=== PATIENT | male | born 1970 | race Caucasian/White ===

== ENCOUNTER → 2022-01-29 10:54 | Outpatient (CLI) | payer OTHER, SELFPAY ==
--- NOTE | 2022-01-29 | DI.RAD.S_ITS ---
PROCEDURE: FL BARIUM SWALLOW INDICATIONS: GASTROESOPHAGEAL REFLUX DISEASE/DYSPHAGIA COMPARISON: [facility] [place], [place], XR FOOT 3+ VIEWS LEFT, 03/29/2021, 12:49. FINDINGS: Function: There is moderate esophageal dysmotility. No elicited gastroesophageal reflux. There is obstruction of a calibrated barium tablet at the gastroesophageal junction. Morphology: There is a short segment focal narrowing of the distal esophagus at the gastroesophageal junction. Air-contrast images demonstrate normal mucosal morphology. Single contrast views show no esophageal extrinsic mass effects or diverticula. Limited images of the stomach demonstrate normal appearance. IMPRESSION: 1. A short-segment focal narrowing of the distal esophagus at the gastroesophageal junction causing obstruction of calibrated barium tablet. Differential diagnoses are distal esophageal stricture versus distal esophageal mass. Recommend EGD for further evaluation. 2. Moderate gastroesophageal dysmotility. Dictated by: Jay Lowe M.D. on 01/29/2022 at 11:53 Approved by: Jay Lowe M.D. on 01/29/2022 at 11:56
== END ==
PROVIDERS: PCP Family Medicine; Referring Provider Otolaryngology Facial Plastic Surgery; Visit Provider Otolaryngology Facial Plastic Surgery
DX: K22.4 Dyskinesia of esophagus (principal); K21.9 Gastro-esophageal reflux disease without esophagitis; R13.19 Other dysphagia
CPT/HCPCS: 74220